=== PATIENT | female | born 1950 | race Caucasian/White ===

== ENCOUNTER 2017-02-24 09:30 | Emergency (ER) | payer MEDICARE ==
[~2017-02-24] VITALS: Ht 167.6 cm; Wt 65.4 kg
[~2017-02-24 09:30] MED LIST: HYOS0.129 SL; MISO200 PO; RANI150 PO
[2017-02-24 09:39] VITALS: BP 160/80; PULSE 92; RESP 15; TEMP 98.3; O2SAT 96
[2017-02-24] MEDS ORDERED: OMEP20TA PO (09:50)
[2017-02-24] MEDS ORDERED: ESTR1TAB PO (09:50)
[2017-02-24] MEDS ORDERED: LINA290C PO (09:50)
[2017-02-24] MEDS ORDERED: RANI150T PO (09:50)
[2017-02-24] MEDS ORDERED: IBUPROFEN 600 MG TAB PO ONE (10:00)
--- NOTE | 2017-02-24 10:01 | PD ---
HPI Chief Complaint: Injury Time Seen by Provider: 09:46 Travel History International Travel<30 days: No Contact w/Intl Traveler<30days: No Traveled to known affect area: No History of Present Illness HPI 67-year-old female here for evaluation of right third finger pain/injury. The patient was placing a fitted she on her bed when she heard a crack and felt immediate pain in her distal right third finger. Pain is moderate to severe, constant, worse with movement and palpation, radiates to her proximal right hand. She denies any other injuries. She is right-handed. PFSH Past Medical History Arthritis: No Asthma: No Autoimmune Disease: No Blood Disorders: No Anxiety: No Depression: No Cancer: No Cardiovascular Problems: No High Cholesterol: No Chest Pain: No Congestive Heart Failure: No COPD: No Cerebrovascular Accident: No Diabetes: No Diminished Hearing: No Diverticulitis: Yes Endocrine: No Gastrointestinal Disorders: Yes (IRRITABLE BOWEL, HEAD'S ESOPHAGUS) Glaucoma: No Genitourinary: No Headaches: No Hypertension: No Immune Disorder: No Neurologic: Yes Psychiatric: No Respiratory: No Migraines: No Radiation Therapy: No Seizures: No Sickle Cell Disease: No Thyroid Disease: No Past Surgical History Abdominal Surgery: Yes (BOWEL OBSTRUCTION CAUSED BY SCAR TISSUE) AICD: No Appendectomy: Yes Arteriovenous Shunt: No Cardiac Surgery: No Cholecystectomy: Yes Ear Surgery: No Endocrine Surgery: No Eye Surgery: No Genitourinary Surgery: No Gynecologic Surgery: Yes (hysterectomy) Hysterectomy: Yes Insulin Pump: No Joint Replacement: No Oral Surgery: Yes (tonsils) Pacemaker: No Thoracic Surgery: No Tonsillectomy: Yes Other Surgery: Yes (UVULECTOMY) Social History Alcohol Use: Yes (WINE DAILY) Tobacco Use: No Substance Use: No Allergies-Medications (Allergen,Severity, Reaction): Coded Allergies: erythromycin base (Unverified Allergy, Severe, ABD PAIN, 02/24/17) Reported Meds & Prescriptions Reported Meds & Active Scripts Active Reported Ranitidine (Ranitidine HCl) 150 Mg Tab 150 Mg PO BID Linzess (Linaclotide) 290 Mcg Cap 290 Mcg PO DAILY Estradiol 1 Mg Tab 1 Mg PO DAILY Omeprazole 20 Mg Tab 20 Mg PO DAILY Review of Systems Except as stated in HPI: all other systems reviewed are Neg Physical Exam Narrative GENERAL: Well-developed, well-nourished, comfortable, no apparent distress. CARDIOVASCULAR: Right dorsalis pedis pulses brisk. Regular rate and rhythm. Normal capillary refill in right third finger/hand. MUSCULOSKELETAL: Right third finger with moderate edema and deformity at the DIP joint with moderate tenderness. There is also tenderness at the base of the right third finger as well as distal right hand. Right hand is without obvious deformity. Normal range of motion in flexion and extension of right finger. FDS and FDP are intact. Extensor tendon is intact. This finger is neurovascularly intact. PSYCHIATRIC: Appropriate mood and affect; insight and judgment normal. Data Data Last Documented VS Vital Signs Date Time Temp Pulse Resp B/P (MAP) Pulse Ox O2 Delivery O2 Flow Rate FiO2 02/24/17 09:39 98.3 92 15 160/80 (106) 96 Orders Orders Finger ([id number]) (02/24/17 ) Hand, Complete ([id number]) (02/24/17 ) Ibuprofen (Motrin) (02/24/17 10:00) MDM Medical Decision Making Medical Screen Exam Complete: Yes Emergency Medical Condition: Yes Differential Diagnosis Right third finger fracture versus dislocation versus sprain. Narrative Course Vital signs show heart rate 92, blood pressure 160/80, pulse ox 96% on room air , oral temp of 98.3F. Right third finger x-ray: Osteoarthritis without definite acute fracture. No dislocation. Right hand x-ray: Arthritic changes are noted. No obvious fracture. She made aware findings. Again she has normal range of motion flexion and extension in the right third finger. FDS and FDP are intact. Extensor tendon is intact. She will be placed in a finger splint and will be discharged home. Hand follow-up in 1-2 weeks. Diagnosis Primary Impression: Injury of right middle finger Qualified Codes: S69.91XA - Unspecified injury of right wrist, hand and finger (s), initial encounter Referrals: Estuardo Hall III, MD 1 week Hand surgeon Additional Instructions: Follow-up with hand surgeon Dr. Hall or a hand surgeon of your choice in 1-2 weeks. Tylenol/Advil for pain. Return to the emergency department for worsening symptoms or any other concerns. Disposition: 01 DISCHARGE HOME Condition: Stable Manish Jeffries MD Feb 24, 2017 10:01
--- NOTE | 2017-02-24 10:57 | RADRPT ---
EXAM DATE/TIME: 02/24/2017 10:30 [facility] COMPARISON: No previous studies available for comparison. INDICATIONS : Bruising/swelling/pain to right distal 3rd digit of right hand after it getting caught in fitted shee t while making bed. MEDICAL HISTORY : Irritable bowel syndrome. Diverticulitis. Katz's esophagus. SURGICAL HISTORY : Tonsillectomy. Cholecystectomy. Appendectomy. Hysterectomy. ENCOUNTER: Initial ACUITY: 2 days PAIN SCORE: 7/10 LOCATION: Right hand FINDINGS: There is normal bone density. There is mild osteoarthritis of the second through fourth DIP joints wi th prominent osteophyte formation seen at the dorsal aspect of the third DIP joint with a well-cortic ated ossific fragment seen dorsal to the head of the middle phalanx. This appears nonacute. There is mild prominence of the soft tissues at this level. No obvious tuft fractures. CONCLUSION: Arthritic changes are noted as above. No obvious acute fracture is not seen. Tremayne Khanna MD on February 24, 2017 at 10:53 Board Certified Radiologist. This report was verified electronically.
--- NOTE | 2017-02-24 10:58 | RADRPT ---
EXAM DATE/TIME: 02/24/2017 10:34 [facility] COMPARISON: HAND RIGHT COMPLETE ([id number]), February 24, 2017, 10:30. INDICATIONS : Bruising/swelling/pain to right distal 3rd digit of right hand after it getting caught in fitted shee t while making bed. MEDICAL HISTORY : Diverticulitis. Irritable bowel syndrome. Katz's esophagus. SURGICAL HISTORY : Tonsillectomy. Appendectomy. Cholecystectomy. Hysterectomy. ENCOUNTER: Initial ACUITY: 2 days PAIN SCORE: 7/10 LOCATION: Right distal 3rd digit FINDINGS: There is moderate osteoarthritis of the third DIP joint with osteophyte formation, joint space narrow ing, and mild last arthritis at the second and fourth DIP joints. Normal bone density. CONCLUSION: Osteoarthritis without definite acute fracture. No dislocation. Tremayne Khanna MD on February 24, 2017 at 10:55 Board Certified Radiologist. This report was verified electronically.
== END 2017-02-24 11:30 | disposition home or self-care (01) ==
LOC: PHEFT 09:30
DX: S69.91XA Unspecified injury of right wrist, hand and finger(s), initial encounter (principal); X58.XXXA Exposure to other specified factors, initial encounter; Y93.E9 Activity, other interior property and clothing maintenance
CPT/HCPCS: 29130; 73130; 73140

== ENCOUNTER → 2017-09-02 | Outpatient (CLI) | payer MEDICARE ==
[~2017-09-02] VITALS: Ht 167.6 cm; Wt 63.1 kg
[~2017-09-02] MED LIST changes: +CHLORHEXIDINE GLUCONATE 2 % 1 PACK (2 CLOTHS) TOPICAL PRN; +CYCL5TAB PO; +ESTR1TAB PO; -HYOS0.129 SL; +LACTATED RINGER'S 1000 ML IV PRN; +LIDOCAINE HCL 1% PF 5 ML SYRINGE OTHER ONE; +LINA290C PO; +METOPROLOL TARTRATE 25 MG TAB PO PRN; -MISO200 PO; +OMEP20TA93 PO; +POVIDONE IODINE 5% (ANTISEPSIS KIT) 4 APPLICATIONS EACH NARE PRN; +PROPOFOL 200 MG/20 ML AMP IV ONE; -RANI150 PO; +RANI150T PO; +SODIUM CHLORID 0.9% 500 ML IV PRN
--- NOTE | 2017-09-02 13:14 | GIPROC ---
[facility] [address] [facility]. [facility], [address] EGD PROCEDURE REPORT EXAM DATE: 09/02/2017 PATIENT NAME: Soila Matta MR #: [id number] BIRTHDATE: 1950 ATTENDING: Ian Neri MD ORDER #: [id number] [employer] HARDWARE ENGINEER: STATUS: outpatient INDICATIONS: The patient is a 67 yr old female here for an EGD due to Katz's esophagus; heartburn is controlled with omeprazole. PROCEDURE PERFORMED: EGD w/ biopsy MEDICATIONS: Per Anesthesia and None. TOPICAL ANESTHETIC: CONSENT: The patient understands the risks and benefits of the procedure and understands that these risks include, but are not limited to: sedation, allergic reaction, infection, perforation and/or bleeding. Alternative means of evaluation and treatment include, among others: physical exam, x-rays, and/or surgical intervention. The patient elects to proceed with this endoscopic procedure. medical equipment was checked for proper function. Hand hygiene and appropriate measures for infection prevention was taken. After the risks, benefits and alternatives of the procedure were thoroughly explained, Informed consent was verified, confirmed and timeout was successfully executed by the treatment team. The patient was anesthetized with topical anesthesia and the endoscope was introduced through the mouth and advanced to the . Retroflexion was performed and was normal The gastroscope was then slowly withdrawn and removed. A tongue of Katz's mucosa was noted from 35-36cm; biopsies were taken. STOMACH: The mucosa of the stomach appeared normal. DUODENUM: The duodenal mucosa appeared normal. ADVERSE EVENTS: There were no complications. IMPRESSIONS: 1. A tongue of Katz's mucosa was noted from 35-36cm; biopsies were taken 2. The mucosa of the stomach appeared normal 3. Normal duodenal mucosa 4. Retroflexion was performed and was normal RECOMMENDATIONS: 1. Await biopsy results. Biopsy results will not be ready for 7-10 days. If you don't hear from us in two weeks, call our office for biopsy results. 2. Resume prior diet and medications. PATIENT CONDITION: stable DISPOSITION: Home REPEAT EXAM: Return 3 years EGD Ian Neri MD eSigned: Ian Neri MD 09/02/2017 1:13 PM cc: Marisa Doherty M.D. PATIENT NAME: Soila Matta Mari MR#: [id number]
--- NOTE | 2017-09-02 13:21 | GIPROC ---
[facility] [address] [facility]. [facility], [address] COLONOSCOPY PROCEDURE REPORT EXAM DATE: 09/02/2017 PATIENT NAME: Soila Matta MR #: [id number] BIRTHDATE: 1950 ENDOSCOPIST: Ian Neri MD ORDER #: [id number] DETAILER: STATUS: outpatient INDICATIONS: The patient is a 67 yr old female here for a colonoscopy due to change in bowel pattern toward constipation; no personal or family history of colorectal neoplasia PROCEDURE PERFORMED: Colonoscopy, diagnostic MEDICATIONS: Per Anesthesia and None. PREP QUALITY: good ESTIMATED BLOOD LOSS: None CONSENT: The patient understands the risks and benefits of the procedure and understands that these risks include, but are not limited to: sedation, allergic reaction, infection, perforation and/or bleeding. Alternative means of evaluation and treatment include, among others: physical exam, x-rays, and/or surgical intervention. The patient elects to proceed with this endoscopic procedure. medical equipment was checked for proper function. Hand hygiene and appropriate measures for infection prevention was taken. After the risks, benefits and alternatives of the procedure were thoroughly explained, Informed consent was verified, confirmed and timeout was successfully executed by the treatment team. A digital exam was performed The endoscope was introduced through the anus and advanced through a very tortuous colon to the cecum, which was identified by both the appendix and ileocecal valve. The instrument was then slowly withdrawn as the colon was fully examined. COLON FINDINGS: Mild left-sided diverticulosis was noted. The scope was then completely withdrawn from the patient and the procedure terminated. ADVERSE EVENTS: There were no complications. IMPRESSIONS: 1. Mild left-sided diverticulosis was noted 2. Was performed RECOMMENDATIONS: May resume [employer], as it had worked for a while; it stopped helping and [employer] helped for the past six months and it stopped helping. RECALL: Return 10 years Colonoscopy Ian Neri MD eSigned: Ian Neri MD 09/02/2017 1:20 PM cc: Marisa Doherty M.D.
[2017-09-02 13:44] VITALS: BP 152/81; PULSE 63; RESP 18; TEMP 97.3; O2SAT 98
--- NOTE | 2017-09-03 09:38 | EKG ---
Date Performed: 09/02/2017 Time Performed: 10:27:54 PTAGE: 67 years EKG: Sinus rhythm NORMAL ECG Since the prior tracing, there has been no significant change PREVIOUS TRACING : 06/26/2010 13.36 DOCTOR: Papo Quiroz Interpretating Date/Time 09/03/2017 09:36:45
== END ==
LOC: HEND 09:35
DX: R19.4 Change in bowel habit (principal); K57.90 Diverticulosis of intestine, part unspecified, without perforation or abscess without bleeding; K22.70 Barrett's esophagus without dysplasia; R12 Heartburn; Z01.810 Encounter for preprocedural cardiovascular examination
CPT/HCPCS: 88305; 93005